=== PATIENT | female | born 1945 | race Caucasian/White ===

== ENCOUNTER → 2023-05-10 09:08 | Outpatient (REF) | payer OTHER, SELFPAY | LOC: DHCBS MAIN 09:08 | PROVIDERS: ATTENDING PHYSICIAN Physician Assistant; FAMILY PHYSICIAN Family Medicine | DX: I10 Essential (primary) hypertension (principal); R06.09 Other forms of dyspnea; I35.9 Nonrheumatic aortic valve disorder, unspecified; T45.1X5D Adverse effect of antineoplastic and immunosuppressive drugs, subsequent encounter | CPT/HCPCS: 93306 ==

== ENCOUNTER → 2024-08-25 13:57 | Outpatient (REF) | payer OTHER, SELFPAY | LOC: HWWDC 13:57 | PROVIDERS: ATTENDING PHYSICIAN Family Medicine | DX: Z12.31 Encounter for screening mammogram for malignant neoplasm of breast (principal) | CPT/HCPCS: 77063; 77067 ==